=== PATIENT | female | born 1975 | race Caucasian/White ===

== ENCOUNTER 2016-07-24 08:12 | Emergency (ER) | payer OTHER ==
[~2016-07-24] VITALS: Ht 152.4 cm; Wt 49.0 kg
[2016-07-24 11:36] LABS: SERUM ETHYL ALCOHOL < 10 mg/dL
[2016-07-24 11:44] LABS: QUANTITATIVE HCG < 4.0 MIU/ML
[2016-07-24 14:38] VITALS: BP 130/84
[2016-07-25 12:17] LABS: TREPONEMA ANTIBODY NEGATIVE (NEGATIVE)
[2016-07-26 13:54] LABS: CHLAMYDIA TRACHOMATIS NEGATIVE; NEISSERIA GONORRHOEAE NEGATIVE
== END 2016-07-24 14:39 | disposition home or self-care (01) ==
LOC: EME 08:12
PROVIDERS: Emergency Medicine
DX: F41.9 Anxiety disorder, unspecified (principal); T76.21XA Adult sexual abuse, suspected, initial encounter; F17.200 Nicotine dependence, unspecified, uncomplicated
CPT/HCPCS: 84702; 86780; 87491; 87591; 90839; 99281; 99285; G0480; J0696